=== PATIENT | male | born 1995 ===

== ENCOUNTER → 2016-11-27 | Outpatient (REF) | LOC: WSOH 12:38 | DX: Z02.89 Encounter for other administrative examinations (principal) ==

== ENCOUNTER → 2017-06-09 | Outpatient (REF) | LOC: WSOH 09:00 | DX: Z02.89 Encounter for other administrative examinations (principal) ==

== ENCOUNTER → 2017-06-09 | Outpatient (REF) | LOC: WSOH 08:56 | DX: Z02.89 Encounter for other administrative examinations (principal) ==